=== PATIENT | male | born 1955 | race Caucasian/White ===

== ENCOUNTER → 2017-12-05 13:40 | Outpatient (CLI) | payer OTHER, SELFPAY ==
[2017-12-05 13:58] LABS: Add Manual Diff / Slide Review NO; Basophils Percent Auto 0.4 % (0-2); Hemoglobin 14.9 g/dL (13.5-17.5); Lymphocytes Percent Auto 23.3 % (25-40); Mean Corpuscular HGB Conc 33.9 % (30-36); Mean Corpuscular Volume 91.3 fL (80-100); Monocytes Percent Auto 9.8 % (3-14); Neutrophils Absolute Auto 3300 /uL (3000-5900); Neutrophils Percent Auto 61.5 % (50-75); Platelet Count 173 X10^3/uL (150-400); Red Blood Cell Count 4.82 X10^6/uL (4.5-5.9); Red Cell Distribution Width 13.3 % (11.6-14.8); White Blood Cell Count 5.4 X10^3/uL (4.5-11.0)
[2017-12-05 14:20] LABS: Alanine Aminotransferase 43 IU/L (21-72); Albumin 4.8 g/dL (3.5-5.0); Albumin Globulin Ratio 1.5 (1.0-2.8); Alkaline Phosphatase 58 U/L (38-126); Aspartate Aminotransferase 31 IU/L (17-59); BUN Creatinine Ratio 16.7 (6-22); Bilirubin Total 0.7 mg/dL (0.2-1.3); Blood Urea Nitrogen 15 mg/dL (9-20); Calcium 9.6 mg/dL (8.4-10.2); Carbon Dioxide 30 mmol/L (22-32); Chloride 100 mmol/L (98-107); Creatine Kinase 168 U/L (55-170); Estimated Glomerular Filt Rate > 60.0 mL/min (>60); Globulin 3.1 g/dL (1.7-4.1); Glucose 95 mg/dL (80-110); HEMOLYSIS < 15 (0-50); Potassium 4.7 mmol/L (3.4-5.1); Sodium 140 mmol/L (137-145); Total Protein 7.9 g/dL (6.3-8.2)
[2017-12-05 14:33] LABS: Troponin I < 0.012 ng/mL (0.01-0.034)
[2017-12-05 14:37] LABS: CKMB % Relative Index 0.9 % (1.5-5.0); Creatine Kinase MB 1.44 ng/mL (<2.37)
== END ==
PROVIDERS: Family Provider Family Medicine; PCP Family Medicine; Visit Provider Family Medicine
DX: R07.9 Chest pain, unspecified (principal)
CPT/HCPCS: 36415; 80053; 82550; 82553; 84484; 85025

== ENCOUNTER → 2018-12-12 07:14 | Outpatient (CLI) | payer OTHER, SELFPAY ==
[2018-12-12 09:34] LABS: Alanine Aminotransferase 30 IU/L (21-72); Albumin 4.7 g/dL (3.5-5.0); Albumin Globulin Ratio 1.6 (1.0-2.8); Alkaline Phosphatase 57 U/L (38-126); Aspartate Aminotransferase 34 IU/L (17-59); BUN Creatinine Ratio 12.2 (6-22); Bilirubin Total 0.6 mg/dL (0.2-1.3); Blood Urea Nitrogen 11 mg/dL (9-20); Calcium 9.7 mg/dL (8.4-10.2); Carbon Dioxide 28 mmol/L (22-32); Chloride 101 mmol/L (98-107); Estimated Glomerular Filt Rate > 60.0 mL/min (>60); Glucose 89 mg/dL (80-110); HEMOLYSIS < 15 (0-50); Potassium 4.3 mmol/L (3.4-5.1); Sodium 141 mmol/L (137-145); Total Protein 7.7 g/dL (6.3-8.2)
[2018-12-12 09:43] LABS: Vitamin D 25 Hydroxy (D3) 30.4 ng/mL (30.0-100.0)
[2018-12-12 10:00] LABS: Prostate Specific Antigen Scrn 1.39 ng/mL (0.1-4.0)
== END ==
PROVIDERS: Visit Provider Student in an Organized Health Care Education/Training Program
DX: Z12.5 Encounter for screening for malignant neoplasm of prostate (principal); E78.00 Pure hypercholesterolemia, unspecified; F10.20 Alcohol dependence, uncomplicated; I10 Essential (primary) hypertension; E55.9 Vitamin D deficiency, unspecified
CPT/HCPCS: 36415; 80053; 82306; G0103

== ENCOUNTER → 2020-08-26 08:02 | Outpatient (CLI) | payer OTHER, SELFPAY ==
[2020-08-26] MEDS: COVID-19 VACC, Ad26(JANSSEN)/PF 0.5 ML IM (08:07)
== END ==
PROVIDERS: Visit Provider Internal Medicine
DX: Z23 Encounter for immunization (principal)
CPT/HCPCS: 0031A; 91303

== ENCOUNTER → 2020-10-06 12:00 | Outpatient (CLI) | payer OTHER, SELFPAY ==
[2020-10-06 12:38] LABS: BUN Creatinine Ratio 19.8 (6-22); Blood Urea Nitrogen 17 mg/dL (9-20); Carbon Dioxide 30 mmol/L (22-32); Chloride 101 mmol/L (98-107); Estimated Glomerular Filt Rate > 60.0 mL/min (>60); Glucose 103 mg/dL (80-110); HEMOLYSIS < 15 (0-50); Potassium 4.3 mmol/L (3.4-5.1); Sodium 139 mmol/L (137-145)
[2020-10-06 13:09] LABS: Prostate Specific Antigen Scrn 1.23 ng/mL (0.1-4.0)
== END ==
PROVIDERS: PCP Student in an Organized Health Care Education/Training Program; Referring Provider Student in an Organized Health Care Education/Training Program; Visit Provider Student in an Organized Health Care Education/Training Program
DX: I10 Essential (primary) hypertension (principal); Z12.5 Encounter for screening for malignant neoplasm of prostate
CPT/HCPCS: 36415; 80048; G0103

== ENCOUNTER → 2021-12-28 15:33 | Outpatient (CLI) | payer MEDICARE, OTHER, SELFPAY ==
[2021-12-28 16:34] LABS: Alanine Aminotransferase 58 IU/L (<50); Albumin 4.6 g/dL (3.5-5.0); Albumin Globulin Ratio 1.5 (1.0-2.8); Alkaline Phosphatase 76 U/L (38-126); Aspartate Aminotransferase 68 IU/L (17-59); BUN Creatinine Ratio 11.8 (6-22); Bilirubin Total 0.6 mg/dL (0.2-1.3); Blood Urea Nitrogen 12 mg/dL (9-20); Calcium 9.4 mg/dL (8.4-10.2); Carbon Dioxide 28 mmol/L (22-32); Chloride 101 mmol/L (98-107); Cholesterol 179 mg/dL (140-199); Estimated Glomerular Filt Rate > 60 mL/min (>60); Glucose 110 mg/dL (80-110); HDL Cholesterol 87 mg/dL (40-60); HEMOLYSIS < 15 (0-50); LDL Cholesterol Calculated 78 mg/dL (<100); Potassium 4.1 mmol/L (3.4-5.1); Sodium 137 mmol/L (137-145); Total Protein 7.6 g/dL (6.3-8.2); Triglycerides 72 mg/dL (35-150)
[2021-12-28 17:02] LABS: TSH w/ Reflex to FT4 4.15 uIU/mL (0.47-4.68)
[2021-12-28 17:04] LABS: Prostate Specific Antigen Scrn 1.25 ng/mL (0.1-4.0)
[2021-12-28 17:40] LABS: Folate > 20.0 ng/mL (2.76-20.0); Vitamin B12 Reflex MMA if <400 846 pg/mL (239-931)
== END ==
PROVIDERS: PCP Student in an Organized Health Care Education/Training Program; Referring Provider Student in an Organized Health Care Education/Training Program; Visit Provider Student in an Organized Health Care Education/Training Program
DX: I10 Essential (primary) hypertension (principal); R97.20 Elevated prostate specific antigen [PSA]; E78.00 Pure hypercholesterolemia, unspecified; F10.20 Alcohol dependence, uncomplicated; Z12.5 Encounter for screening for malignant neoplasm of prostate
CPT/HCPCS: 36415; 80053; 80061; 82607; 82746; 84443; G0103

== ENCOUNTER 2022-01-12 11:32 | Emergency (ER) | payer MEDICARE, OTHER, SELFPAY ==
[2022-01-12] VITALS (11 sets, daily range): BP systolic 106–131; BP diastolic 67–82; PULSE 67–103; RESP 18–23; TEMP 37.2; O2SAT 99–100; BMI 27.8
--- NOTE | 2022-01-12 11:41 | DI.RAD.S_ITS ---
PROCEDURE: XR CHEST 2V INDICATIONS: shortness of breath TECHNIQUE: 2 views of the chest were acquired. COMPARISON: Located Within [facility], , CHEST 2 VIEW, 08/31/2010, 15:14. FINDINGS: Surgical changes and devices: None. Lungs and pleura: Lungs are clear. No pleural effusions or pneumothorax. Mediastinum: Mediastinal contours are normal. Heart size is normal. Bones and chest wall: No suspicious bony abnormalities. Soft tissues appear unremarkable. IMPRESSION: No acute cardiopulmonary disease. Dictated by: Ericka Burns M.D. on 01/12/2022 at 12:09 Approved by: Ericka Burns M.D. on 01/12/2022 at 12:09
[2022-01-12 12:02] LABS: Add Manual Diff / Slide Review NO; Basophils Absolute Auto 0 /uL (0-100); Basophils Percent Auto 0.3 % (0-2); Eosinophils Absolute Auto 200 /uL (0-450); Eosinophils Percent Auto 2.4 % (2-4); Hematocrit 45.1 % (41-53); Hemoglobin 15.5 g/dL (13.5-17.5); Lymphocytes Absolute Auto 2400 /uL (1100-4500); Lymphocytes Percent Auto 25.7 % (25-40); Mean Corpuscular HGB Conc 34.3 % (30-36); Mean Corpuscular Hemoglobin 32.2 PG (26-34); Mean Corpuscular Volume 93.8 fL (80-100); Monocytes Absolute Auto 900 /uL (0-900); Monocytes Percent Auto 9.8 % (3-14); Neutrophils Absolute Auto 5700 /uL (1500-7000); Neutrophils Percent Auto 61.8 % (50-75); Platelet Count 186 X10^3/uL (150-400); Red Blood Cell Count 4.81 X10^6/uL (4.5-5.9); Red Cell Distribution Width 13.4 % (11.6-14.8); White Blood Cell Count 9.3 X10^3/uL (4.5-11.0)
[2022-01-12 12:04] LABS: Lactate (Lactic Acid) 3.9 mmol/L (0.7-2.1)
[2022-01-12 12:05] LABS: Alanine Aminotransferase 47 IU/L (<50); Albumin 5.3 g/dL (3.5-5.0); Albumin Globulin Ratio 1.5 (1.0-2.8); Alkaline Phosphatase 92 U/L (38-126); Aspartate Aminotransferase 66 IU/L (17-59); BUN Creatinine Ratio 10.8 (6-22); Bilirubin Total 1.3 mg/dL (0.2-1.3); Blood Urea Nitrogen 16 mg/dL (9-20); Carbon Dioxide 22 mmol/L (22-32); Chloride 98 mmol/L (98-107); Estimated Glomerular Filt Rate 52 mL/min (>60); Globulin 3.5 g/dL (1.7-4.1); Glucose 135 mg/dL (80-110); HEMOLYSIS 33 (0-50); Potassium 4.3 mmol/L (3.4-5.1); Sodium 136 mmol/L (137-145); Total Protein 8.8 g/dL (6.3-8.2)
--- NOTE | 2022-01-12 12:11 | ED_ITS ---
HPI - SOB/Dyspnea General Chief Complaint: Shortness of Breath/Dyspnea Stated Complaint: SOB Time Seen by Provider: 01/12/22 11:58 Source: patient Mode of arrival: EMS Limitations: no limitations History of Present Illness HPI Narrative: This is a 66-year-old male with history of hypertension, dyslipidemia and alco hol dependency. Patient states that today he was out golfing he had increasing shortness of breath with exertion by the 2nd T on the golf course he was quite short of breath by the 4th T he was significantly out of gas and became diaphoretic very short of breath he did not have any syncope but felt a little lightheaded he denies any chest pain or pressure but his shoulders felt very tight. Patient denies nausea or vomiting no issues with bowel movements. He is noted his urine output has decreased over time denies any swelling of his extremities. Patient states he is had shortness of breath with exertion for the past year he does not feel like it has been progressive or changing he states he quit exercising 3 days a week about a year ago when he retired so he is unsure if this is more deconditioned. Patient states no new medication changes his primary care weeks ago. He quit drinking a 3rd of a 5th of hard alcohol daily about 3 days ago but is still drinking a 6 pack nightly patient denies any tobacco, no recreational drugs. He states he is felt a little shaky but has not had any other symptoms of withdrawal. He does note that he was out on the boat and outside for the last several days. He was hypotensive in the field with EMS and seem to respond to fluid he was also tachycardic. Related Data Previous Rx's Medication Instructions Recorded multivitamin 1 tab PO DAILY #30 tabs 12/11/18 atorvastatin 20 mg tablet 20 mg PO DAILY #90 tabs 09/14/21 lisinopril 10 1 tab PO DAILY #90 tabs 01/05/22 mg-hydrochlorothiazide 12.5 mg tablet Allergies Allergy/AdvReac Type Severity Reaction Status Date / Time No Known Drug Allergies Allergy Unverified 12/28/21 14:53 Review of Systems Review of Systems ROS Unobtainable: All systems reviewed & are unremarkable except as noted in HPI and below Patient History Medical History Chicken pox (~1959) Chronic back pain (~2008) Essential hypertension (03/22/16) Hearing loss Mild acid reflux Mumps Pure hypercholesterolemia (03/22/16) Vision disorder Surgical History Anesthesia History of eye surgery (~1959) Status post discectomy (~2008) Family History Father No problems noted. Mother No problems noted. Social History marital status: household members: spouse education level: college Smoking Status: Never smoker alcohol intake: current substance use type: does not use Smoking Status: Never smoker alcohol intake frequency: 3 or more drinks per day Substance Use Type: does not use Exam Narrative Exam Narrative: GENERAL: Alert and oriented x three, mild distress HEENT: Head normocephalic, atraumatic, EOMI, pupils reactive, face symmetric, moist mucous membranes NECK: Supple, full range of motion CARDIOVASCULAR: Regular rate and rhythm without murmurs, rubs or gallops. No JVD. No swelling bilateral lower extremities. RESPIRATORY: Breath sounds equal bilaterally, no wheezes rales or rhonchi. ABDOMEN: Soft, nontender. Normoactive bowel sounds all 4 quadrants. No guarding or rebound, rigidity, no mass : No CVA tenderness EXTREMITIES: Normal range of motion, no clubbing or edema. Neurovascularly intact NEUROLOGICAL: Cranial nerves II through XII grossly intact. Moving all ex tremities SKIN: Warm, dry, no petechiae, no rashes or lesions. Initial Vital Signs Initial Vital Signs: Vital Signs Pulse Oximetry 100 01/12/22 11:36 Course Orders Ordered: ED Orders 01/12/22 11:30 BNP [NT-proBNP (BNP-Adult 18+)] Stat Complete Blood Count AUTO DIFF Stat Comprehensive Metabolic Panel Stat ETOH [Ethanol (ETOH)] Stat Lactate (Lactic Acid) Stat Troponin & CK Cardiac Panel Stat 01/12/22 11:41 XR chest 2V Stat EKG-12 Lead Stat Measure peak expiratory flow ONCE RT Consult Eval and Treat Now 01/12/22 12:00 Creatinine Urine Random Stat Sodium Urine Random Stat Urine Microscopic Stat 01/12/22 13:05 COVID19 -Nasal RAPID/Pre-Proc Stat 01/12/22 13:50 Trop I [Troponin I] Stat Discontinued Medications Sodium Chloride (Normal Saline 0.9%) 1,000 mls @ 1,000 mls/hr IV BOLUS ONE Stop: 01/12/22 14:07 Last Infusion: 01/12/22 14:52 Dose: 0 mls/hr Documented By: Admin: 01/12/22 13:16 Dose: 1,000 mls/hr Documented By: [email or web address] Vital Signs Vital signs: Vital Signs - 8 hr 01/12/22 12:06 01/12/22 12:09 01/12/22 12:09 Pulse Rate 100 H Respiratory Rate 23 Blood Pressure 115/81 Pulse Oximetry 99 100 Oxygen Delivery Method 01/12/22 12:30 01/12/22 12:30 01/12/22 13:00 Pulse Rate Respiratory Rate Blood Pressure 106/70 114/68 Pulse Oximetry 99 Oxygen Delivery Method 01/12/22 13:00 01/12/22 13:19 01/12/22 13:19 Pulse Rate 97 H 70 Respiratory Rate 23 22 Blood Pressure 131/70 Pulse Oximetry 99 100 Oxygen Delivery Method 01/12/22 13:30 01/12/22 13:30 01/12/22 14:00 Pulse Rate 71 Respiratory Rate 22 Blood Pressure 116/67 112/71 Pulse Oximetry 100 Oxygen Delivery Method 01/12/22 14:00 01/12/22 14:30 01/12/22 14:30 Pulse Rate 91 H 67 Respiratory Rate 22 20 Blood Pressure 108/67 Pulse Oximetry 100 99 Oxygen Delivery Method 01/12/22 15:03 Pulse Rate 70 Respiratory Rate 19 Blood Pressure 114/82 Pulse Oximetry 99 Oxygen Delivery Method Room Air MDM - SOB/Dyspnea Lab Data Result diagrams: 01/12/22 11:30 01/12/22 11:30 Labs: Lab Results 01/12/22 01/12/22 01/12/22 Range/Units 11:30 11:30 11:30 WBC 9.3 (4.5-11.0) X10^3/uL RBC 4.81 (4.5-5.9) X10^6/uL Hgb 15.5 (13.5-17.5) g/dL Hct 45.1 (41-53) % MCV 93.8 (80-100) fL MCH 32.2 (26-34) PG MCHC 34.3 (30-36) % RDW 13.4 (11.6-14.8) % Plt Count 186 (150-400) X10^3/uL Neut % (Auto) 61.8 (50-75) % Lymph % (Auto) 25.7 (25-40) % [place] % (Auto) 9.8 (3-14) % Eos % (Auto) 2.4 (2-4) % Baso % (Auto) 0.3 (0-2) % Neut # (Auto) 5700 (6685-2265) /uL Lymph # (Auto) 2400 (2101-1413) /uL [place] # (Auto) 900 (0-900) /uL Eos # (Auto) 200 (0-450) /uL Baso # (Auto) 0 (0-100) /uL Sodium 136 L (137-145) mmol/L Potassium 4.3 (3.4-5.1) mmol/L Chloride 98 (98-107) mmol/L Carbon Dioxide 22 (22-32) mmol/L BUN 16 (9-20) mg/dL Creatinine 1.48 H (0.66-1.25) mg/dL Estimated GFR 52 L (>60) mL/min BUN/Creatinine Ratio 10.8 (6-22) Glucose 135 H (80-110) mg/dL Lactate 3.9 H (0.7-2.1) mmol/L Calcium 10.0 (8.4-10.2) mg/dL Total Bilirubin 1.3 (0.2-1.3) mg/dL AST 66 H (17-59) IU/L ALT 47 (<50) IU/L Alkaline Phosphatase 92 (38-126) U/L Total Creatine Kinase (55-170) U/L CK-MB (CK-2) (<2.37) ng/mL CK-MB (CK-2) Rel Index (1.5-5.0) % Troponin I (0.01-0.034) ng/mL NT-Pro-B Natriuret Pep (<125) pg/mL Total Protein 8.8 H (6.3-8.2) g/dL Albumin 5.3 H (3.5-5.0) g/dL Globulin 3.5 (1.7-4.1) g/dL Albumin/Globulin Ratio 1.5 (1.0-2.8) Urine RBC (0-5/HPF) Urine WBC (0-5/HPF) Ur Squamous Epith Cells (0-5/HPF) Urine Bacteria (None) Hyaline Casts (None) Ur Culture Indicated? Ur Random Sodium (30-90) mmol/L Urine Creatinine mg/dL Ethyl Alcohol ( - 10) mg/dL SARS-CoV-2 (PCR) (Negative) 01/12/22 01/12/22 01/12/22 Range/Units 11:30 11:30 12:00 WBC (4.5-11.0) X10^3/uL RBC (4.5-5.9) X10^6/uL Hgb (13.5-17.5) g/dL Hct (41-53) % MCV (80-100) fL MCH (26-34) PG MCHC (30-36) % RDW (11.6-14.8) % Plt Count (150-400) X10^3/uL Neut % (Auto) (50-75) % Lymph % (Auto) (25-40) % [place] % (Auto) (3-14) % Eos % (Auto) (2-4) % Baso % (Auto) (0-2) % Neut # (Auto) (4821-8455) /uL Lymph # (Auto) (9586-6704) /uL [place] # (Auto) (0-900) /uL Eos # (Auto) (0-450) /uL Baso # (Auto) (0-100) /uL Sodium (137-145) mmol/L Potassium (3.4-5.1) mmol/L Chloride (98-107) mmol/L Carbon Dioxide (22-32) mmol/L BUN (9-20) mg/dL Creatinine (0.66-1.25) mg/dL Estimated GFR (>60) mL/min BUN/Creatinine Ratio (6-22) Glucose (80-110) mg/dL Lactate (0.7-2.1) mmol/L Calcium (8.4-10.2) mg/dL Total Bilirubin (0.2-1.3) mg/dL AST (17-59) IU/L ALT (<50) IU/L Alkaline Phosphatase (38-126) U/L Total Creatine Kinase 229 H (55-170) U/L CK-MB (CK-2) 2.45 H (<2.37) ng/mL CK-MB (CK-2) Rel Index 1.1 L (1.5-5.0) % Troponin I < 0.012 (0.01-0.034) ng/mL NT-Pro-B Natriuret Pep 420 H (<125) pg/mL Total Protein (6.3-8.2) g/dL Albumin (3.5-5.0) g/dL Globulin (1.7-4.1) g/dL Albumin/Globulin Ratio (1.0-2.8) Urine RBC 0-1/hpf (0-5/HPF) Urine WBC 0-1/hpf (0-5/HPF) Ur Squamous Epith Cells 0-1 /hpf (0-5/HPF) Urine Bacteria None seen (None) Hyaline Casts 1-5/lpf (None) Ur Culture Indicated? Cult not indicated Ur Random Sodium (30-90) mmol/L Urine Creatinine mg/dL Ethyl Alcohol < 10 ( - 10) mg/dL SARS-CoV-2 (PCR) (Negative) 01/12/22 01/12/22 01/12/22 Range/Units 12:00 13:05 13:50 WBC (4.5-11.0) X10^3/uL RBC (4.5-5.9) X10^6/uL Hgb (13.5-17.5) g/dL Hct (41-53) % MCV (80-100) fL MCH (26-34) PG MCHC (30-36) % RDW (11.6-14.8) % Plt Count (150-400) X10^3/uL Neut % (Auto) (50-75) % Lymph % (Auto) (25-40) % [place] % (Auto) (3-14) % Eos % (Auto) (2-4) % Baso % (Auto) (0-2) % Neut # (Auto) (6132-9707) /uL Lymph # (Auto) (5277-4340) /uL [place] # (Auto) (0-900) /uL Eos # (Auto) (0-450) /uL Baso # (Auto) (0-100) /uL Sodium (137-145) mmol/L Potassium (3.4-5.1) mmol/L Chloride (98-107) mmol/L Carbon Dioxide (22-32) mmol/L BUN (9-20) mg/dL Creatinine (0.66-1.25) mg/dL Estimated GFR (>60) mL/min BUN/Creatinine Ratio (6-22) Glucose (80-110) mg/dL Lactate (0.7-2.1) mmol/L Calcium (8.4-10.2) mg/dL Total Bilirubin (0.2-1.3) mg/dL AST (17-59) IU/L ALT (<50) IU/L Alkaline Phosphatase (38-126) U/L Total Creatine Kinase (55-170) U/L CK-MB (CK-2) (<2.37) ng/mL CK-MB (CK-2) Rel Index (1.5-5.0) % Troponin I < 0.012 (0.01-0.034) ng/mL NT-Pro-B Natriuret Pep (<125) pg/mL Total Protein (6.3-8.2) g/dL Albumin (3.5-5.0) g/dL Globulin (1.7-4.1) g/dL Albumin/Globulin Ratio (1.0-2.8) Urine RBC (0-5/HPF) Urine WBC (0-5/HPF) Ur Squamous Epith Cells (0-5/HPF) Urine Bacteria (None) Hyaline Casts (None) Ur Culture Indicated? Ur Random Sodium 69 (30-90) mmol/L Urine Creatinine 60.4 mg/dL Ethyl Alcohol ( - 10) mg/dL SARS-CoV-2 (PCR) Negative (Negative) 01/12/22 Range/Units 13:50 WBC (4.5-11.0) X10^3/uL RBC (4.5-5.9) X10^6/uL Hgb (13.5-17.5) g/dL Hct (41-53) % MCV (80-100) fL MCH (26-34) PG MCHC (30-36) % RDW (11.6-14.8) % Plt Count (150-400) X10^3/uL Neut % (Auto) (50-75) % Lymph % (Auto) (25-40) % [place] % (Auto) (3-14) % Eos % (Auto) (2-4) % Baso % (Auto) (0-2) % Neut # (Auto) (3437-4667) /uL Lymph # (Auto) (3656-3530) /uL [place] # (Auto) (0-900) /uL Eos # (Auto) (0-450) /uL Baso # (Auto) (0-100) /uL Sodium (137-145) mmol/L Potassium (3.4-5.1) mmol/L Chloride (98-107) mmol/L Carbon Dioxide (22-32) mmol/L BUN (9-20) mg/dL Creatinine (0.66-1.25) mg/dL Estimated GFR (>60) mL/min BUN/Creatinine Ratio (6-22) Glucose (80-110) mg/dL Lactate 1.0 (0.7-2.1) mmol/L Calcium (8.4-10.2) mg/dL Total Bilirubin (0.2-1.3) mg/dL AST (17-59) IU/L ALT (<50) IU/L Alkaline Phosphatase (38-126) U/L Total Creatine Kinase (55-170) U/L CK-MB (CK-2) (<2.37) ng/mL CK-MB (CK-2) Rel Index (1.5-5.0) % Troponin I (0.01-0.034) ng/mL NT-Pro-B Natriuret Pep (<125) pg/mL Total Protein (6.3-8.2) g/dL Albumin (3.5-5.0) g/dL Globulin (1.7-4.1) g/dL Albumin/Globulin Ratio (1.0-2.8) Urine RBC (0-5/HPF) Urine WBC (0-5/HPF) Ur Squamous Epith Cells (0-5/HPF) Urine Bacteria (None) Hyaline Casts (None) Ur Culture Indicated? Ur Random Sodium (30-90) mmol/L Urine Creatinine mg/dL Ethyl Alcohol ( - 10) mg/dL SARS-CoV-2 (PCR) (Negative) Urine Dip Bedside Urine Glucose Negative Bedside Urine Bilirubin - Negative Bedside Urine Ketone - Negative Urine Specific [place] 1.010 Bedside Urine Occult Blood - Negative Bedside Urine pH 6 Bedside Urine Protein + 30 Bedside Urine Urobilinogen - Negative Bedside Urine Nitrite - Negative Bedside Urine Leukocytes - Negative Esterase Imaging Data Chest x-ray: Radiologist's Impression: [address] [address] XRay Report Signed Patient: Colt Wrad MR#: [id number] : 1955 Acct:[id number] Age/Sex: 66 / M Date of Service: 01/12/22 Loc: ED Accession Number: [id number] ?? Procedure: XR chest 2V Ordering Provider: Adriana Blount D.O. PROCEDURE:? XR CHEST 2V ? INDICATIONS:? shortness of breath ? TECHNIQUE:? 2 views of the chest were acquired.? ? COMPARISON:? [facility], , CHEST 2 VIEW, 08/31/2010, 15:14. ? FINDINGS:? ? Surgical changes and devices:? None.? ? Lungs and pleura:? Lungs are clear.? No pleural effusions or pneumothorax.? ? Mediastinum:? Mediastinal contours are normal.? Heart size is normal.? ? Bones and chest wall:? No suspicious bony abnormalities.? Soft tissues appear unremarkable.? ? IMPRESSION:? No acute cardiopulmonary disease. ? ? ? Dictated by: Ericka Burns M.D. on 01/12/2022 at 12:09 ? ? Approved by: Ericka Burns M.D. on 01/12/2022 at 12:09?? ECG Data Attestation: I personally reviewed and interpreted this ECG as follows: Interpretation: Junctional rhythm rate of 105 QRS of 90 QTC of 454. No acute ST changes noted. Patient has prior from June 17, 2000 available and imaging which is not showing any acute changes. MDM Narrative Medical decision making narrative: This is a 66-year-old male with hypertension, dyslipidemia and dyspnea exertion for the past year had an episode today while out on the golf course which he has not done frequently. Patient has had some exertional dyspnea this could be an anginal equivalent. His troponin is negative x2 no acute EKG changes but also f ound to have a bump in his creatinine from even 2 weeks ago. FENA reflects more of an intrinsic cause. Patient's BUN is not elevated does not ketones in his urine. No obvious signs of infection. He is on lisinopril/HCTZ and was hypotensive on arrival so asked to hold this at this time follow-up with his physician in the next week to have his renal function rechecked and to continue to hydrate. Patient and I discussed if he has any additional episodes of dyspnea he should return for emergent evaluation but should discuss with primary care about possibly having stress testing. He does note he was working out regularly before and had stopped but based on his symptoms today I suspect this is more than just deconditioning. Discharge Plan Departure Patient Disposition: Home Clinical Impression: Dyspnea Instructions: DI for Shortness of Breath Activity Restrictions/Additional Instructions: Follow-up with your physician for recheck, they need to recheck your renal function I would also consider having stress testing for your exertional dyspnea. Your labs are overall reassuring but your renal function is decreased today from your prior labs 2 weeks ago. Please follow-up with your physician to get your renal function rechecked in the next 2-3 days and make sure to increase your hydration and drink plenty of fluids. Please hold your lisinopril/HCTZ until you have your renal function rechecked they may restart this medication if your kidney function has normalized. Please return for fevers, increasing shortness of breath, chest pain or pressure, passing out, nausea or vomiting, diaphoresis or sweatiness, new swelling in her extremities or other new or concerning symptoms. Prescriptions: No Action atorvastatin 20 mg tablet 20 mg PO DAILY Qty: 90 0RF Rx Instructions: Patient needs to be seen before next renewal 09/14/21. lisinopril-hydrochlorothiazide 10-12.5 mg tablet 1 tab PO DAILY Qty: 90 1RF multivitamin tablet 1 tab PO DAILY Qty: 30 0RF Referrals: Sabino Sutherland MD [Primary Care Provider] - Visit Report Forms: Patient Portal/API
[2022-01-12 12:27] LABS: Creatine Kinase 229 U/L (55-170)
[2022-01-12 12:28] LABS: Ethanol (ETOH) < 10 mg/dL
[2022-01-12 12:41] LABS: NT-proBNP (BNP-Adult 18+) 420 pg/mL (<125); Troponin I < 0.012 ng/mL (0.01-0.034)
[2022-01-12 12:45] LABS: CKMB % Relative Index 1.1 % (1.5-5.0); Creatine Kinase MB 2.45 ng/mL (<2.37)
[2022-01-12] MEDS: SODIUM CHLORIDE 0.9% 1,000 ML 1000 ML IV (13:16)
[2022-01-12 13:36] LABS: Bacteria Urine None Seen; Culture Indicated Urine Cult Not Indicated; Hyaline Casts Urine 1-5/LPF; RBC Urine 0-1/HPF (0-5/HPF); Squamous Epithelial Cell Urine 0-1 /HPF (0-5/HPF); WBC Urine 0-1/HPF (0-5/HPF)
[2022-01-12 13:44] LABS: Creatinine Urine Random 60.4 mg/dL; Sodium Urine Random 69 mmol/L (30-90)
[2022-01-12 13:54] LABS: Reflexed Lactate in 2 Hours Y
[2022-01-12 14:24] LABS: Troponin I < 0.012 ng/mL (0.01-0.034)
[2022-01-12 14:54] LABS: COVID19 -Nasal RAPID Negative (Negative)
== END 2022-01-12 15:04 | disposition home or self-care (01) ==
PROVIDERS: Emergency Provider Emergency Medicine; PCP Student in an Organized Health Care Education/Training Program
DX: R06.00 Dyspnea, unspecified (principal); Z20.822 Contact with and (suspected) exposure to COVID-19
CPT/HCPCS: 36415; 71046; 80053; 80320; 81003; 81015; 82550; 82553; 82570; 83605; 83880; 84300; 84484; 85025; 87635; 93005; 99284; C9803

== ENCOUNTER → 2022-01-15 07:29 | Outpatient (CLI) | payer MEDICARE, OTHER, SELFPAY ==
[2022-01-15 08:02] LABS: BUN Creatinine Ratio 15.9 (6-22); Blood Urea Nitrogen 13 mg/dL (9-20); Calcium 9.1 mg/dL (8.4-10.2); Carbon Dioxide 27 mmol/L (22-32); Chloride 103 mmol/L (98-107); Estimated Glomerular Filt Rate > 60 mL/min (>60); Glucose 103 mg/dL (80-110); HEMOLYSIS < 15 (0-50); Potassium 4.6 mmol/L (3.4-5.1); Sodium 139 mmol/L (137-145)
== END ==
PROVIDERS: PCP Student in an Organized Health Care Education/Training Program; Referring Provider Emergency Medicine; Visit Provider Emergency Medicine
DX: N17.9 Acute kidney failure, unspecified (principal)
CPT/HCPCS: 36415; 80048

== ENCOUNTER → 2023-03-27 11:56 | Outpatient (CLI) | payer MEDICARE, OTHER, SELFPAY ==
[2023-03-27 12:28] LABS: Hematocrit 42.9 % (41-53); Hemoglobin 14.6 g/dL (13.5-17.5)
[2023-03-27 12:52] LABS: Hemoglobin A1C% w Est Avg Glu 5.2 % (4.0-6.0)
[2023-03-27 13:15] LABS: Iron 146 ug/dL (49-181)
[2023-03-27 13:17] LABS: Alanine Aminotransferase 40 IU/L (<50); Albumin 4.3 g/dL (3.5-5.0); Albumin Globulin Ratio 1.5 (1.0-2.8); Alkaline Phosphatase 76 U/L (38-126); Aspartate Aminotransferase 52 IU/L (17-59); BUN Creatinine Ratio 13.4 (6-22); Bilirubin Total 0.8 mg/dL (0.2-1.3); Blood Urea Nitrogen 11 mg/dL (9-20); Calcium 9.3 mg/dL (8.4-10.2); Carbon Dioxide 24 mmol/L (22-32); Chloride 101 mmol/L (98-107); Cholesterol 185 mg/dL (140-199); Estimated Glomerular Filt Rate > 60 mL/min (>60); Globulin 2.8 g/dL (1.7-4.1); Glucose 104 mg/dL (80-110); HDL Cholesterol 103 mg/dL (40-60); HEMOLYSIS < 15 (0-50); LDL Cholesterol Calculated 63 mg/dL (<100); Potassium 4.2 mmol/L (3.4-5.1); Sodium 137 mmol/L (137-145); Total Protein 7.1 g/dL (6.3-8.2); Triglycerides 97 mg/dL (35-150)
[2023-03-27 17:37] LABS: Hep C Virus Ab w/Reflex Quant NEGATIVE s/c (NEGATIVE)
[2023-04-11 12:08] LABS: Vitamin B1 159.2 nmol/L (66.5-200.0)
== END ==
PROVIDERS: PCP Family Medicine; Referring Provider Family Medicine; Visit Provider Family Medicine
DX: Z86.010 Personal history of colon polyps (principal); F10.20 Alcohol dependence, uncomplicated; I10 Essential (primary) hypertension; E78.00 Pure hypercholesterolemia, unspecified; Z00.00 Encounter for general adult medical examination without abnormal findings
CPT/HCPCS: 36415; 80053; 80061; 83036; 83540; 84425; 85014; 85018; 86803

== ENCOUNTER → 2023-03-28 07:13 | Outpatient (CLI) | payer MEDICARE, OTHER, SELFPAY ==
[2023-03-28 09:37] LABS: Creatinine Urine Random 197.3 mg/dL
[2023-03-28 09:41] LABS: Microalbumin Urine Random 0.8 mg/dL (0-1.6)
== END ==
PROVIDERS: PCP Family Medicine; Referring Provider Family Medicine; Visit Provider Family Medicine
DX: Z86.010 Personal history of colon polyps (principal); F10.20 Alcohol dependence, uncomplicated; I10 Essential (primary) hypertension; E78.00 Pure hypercholesterolemia, unspecified; Z00.00 Encounter for general adult medical examination without abnormal findings
CPT/HCPCS: 82043; 82570

== ENCOUNTER → 2023-04-03 10:57 | Outpatient (CLI) | payer MEDICARE, OTHER, SELFPAY ==
[2023-04-03 13:24] LABS: Vitamin B12 Reflex MMA if <400 240 pg/mL (239-931)
[2023-04-06 13:32] LABS: ANA Screen, IFA Negative (.)
[2023-04-08 10:28] LABS: Alpha-1 Globulin, Ur 8.9 % (.); Beta Globulin, Ur 27.7 % (.); Gamma Globulin, Ur 15.8 % (.); M-Spike % Not Observed % (Not Observed)
[2023-04-08 14:24] LABS: Albumin 3.8 g/dL (2.9-4.4); Alpha-1-Globulin 0.2 g/dL (0.0-0.4); Alpha-2-Globulin 0.6 g/dL (0.4-1.0); Gamma Globulin 1.1 g/dL (0.4-1.8); Globulin Total 3.1 g/dL (2.2-3.9); Protein, Total 6.9 g/dL (6.0-8.5)
[2023-04-12 23:39] LABS: Methylmalonic Acid,Serum 101 nmol/L (0-378)
== END ==
PROVIDERS: PCP Family Medicine; Referring Provider Family Medicine; Visit Provider Family Medicine
DX: F10.20 Alcohol dependence, uncomplicated (principal); R20.0 Anesthesia of skin; R20.2 Paresthesia of skin
CPT/HCPCS: 36415; 82607; 83921; 84155; 84156; 84165; 84166; 86038

== ENCOUNTER 2023-08-06 12:48 | Day surgery (SDC) | payer MEDICARE, OTHER, SELFPAY ==
[2023-08-06 13:04] VITALS: BP 123/84; PULSE 96; RESP 18; TEMP 36.1; O2SAT 99
--- NOTE | 2023-08-06 13:40 | SUR.PREOP ---
Patients procedure was canceled by anesthesia due to abnormal EKG. Will follow-up with PCP or cardiology.
== END 2023-08-06 12:50 | disposition home or self-care (01) ==
PROVIDERS: PCP Family Medicine; Referring Provider Surgery; Visit Provider Surgery
DX: Z12.11 Encounter for screening for malignant neoplasm of colon (principal); Z53.9 Procedure and treatment not carried out, unspecified reason; R00.0 Tachycardia, unspecified
CPT/HCPCS: 45378; 93005

== ENCOUNTER → 2023-08-08 10:57 | Outpatient (CLI) | payer MEDICARE, OTHER, SELFPAY ==
--- NOTE | 2023-08-08 11:00 | DI.RAD.S_ITS ---
PROCEDURE: XR CHEST 2V INDICATIONS: Treat and Eval TECHNIQUE: 2 views of the chest were acquired. COMPARISON: [facility], [place], XR CHEST 2V, 01/12/2022, 11:50. [facility], [place], CHEST 2 VIEW, 08/31/2010, 15:14. FINDINGS: Surgical changes and devices: None. Lungs and pleura: Lungs are clear. No pleural effusions or pneumothorax. Mediastinum: Mediastinal contours are normal. Heart size is normal. Bones and chest wall: No suspicious bony abnormalities. Soft tissues appear unremarkable. IMPRESSION: No acute cardiopulmonary abnormality is seen. Dictated by: Ovi aT M.D. on 08/08/2023 at 14:48 Approved by: Ovi Ta M.D. on 08/08/2023 at 14:51
== END ==
PROVIDERS: PCP Family Medicine; Referring Provider Family Medicine; Visit Provider Family Medicine
DX: R06.2 Wheezing (principal)
CPT/HCPCS: 71046

== ENCOUNTER → 2023-08-15 09:40 | Outpatient (CLI) | payer MEDICARE, OTHER, SELFPAY | PROVIDERS: PCP Family Medicine; Referring Provider Family Medicine; Visit Provider Family Medicine | DX: R00.2 Palpitations (principal); I48.91 Unspecified atrial fibrillation; I48.92 Unspecified atrial flutter | CPT/HCPCS: 93246 ==

== ENCOUNTER → 2023-08-23 06:48 | Outpatient (CLI) | payer MEDICARE, OTHER, SELFPAY ==
--- NOTE | 2023-08-23 06:49 | DI.ECHO.S_ITS ---
[place] [facility]---------+ [facility] +---------+ : : [address] : : : : [id number] : : : : Phone: [phone] Echocardiogram Report + + :Name: PIO HERRMANN Study Date: 08/23/2023 Height: 72 in : :[facility] ReadingLocation: Weight: 212 lb : : Gender: Male BSA: 2.2 m2 : :: 1955 Age: 68 yrs BP: 125/89 mmHg: :Reason For Study: TREAT AND EVAL, ABNORMAL EKG : :Ordering Physician: MARCE, : :FELICIA Tirado Performed By: Iris Patel : :Referring: FELICIA ZHENG : + + Interpretation Summary The ejection fraction is estimated to be 60-65%. Diastolic parameters suggest probable normal left ventricular diastolic function and normal filling pressures. The right ventricular systolic function is normal. No significant valvular abnormality. The ascending aorta is at the upper limits of normal in size. Procedure: A two-dimensional transthoracic echocardiogram with color flow and Doppler was performed. The study quality was technically adequate. There is no prior echocardiogram noted for this patient. The patient was in sinus rhythm with heart rates between 62-70 bpm during the exam. Left Ventricle: The left ventricle is normal in size and wall thickness. The ejection fraction is estimated to be 60-65%. Left ventricular wall motion is normal. Diastolic parameters suggest probable normal left ventricular diastolic function and normal filling pressures. Right Ventricle: The right ventricle is mildly dilated. The right ventricular systolic function is normal. Atria: The left atrial size is normal. Right atrial size is normal. There is no Doppler evidence for an interatrial shunt. Mitral Valve: The mitral valve is normal in structure and function. There is trace mitral regurgitation. Aortic Valve: The aortic valve is trileaflet. The aortic valve opens well. There is no aortic valve stenosis. There is trace aortic regurgitation. Tricuspid Valve: The tricuspid valve is normal in structure and function. There is trace tricuspid regurgitation. Pulmonic Valve: The pulmonic valve is not well seen, but is grossly normal. There is mild pulmonic regurgitation. Great Vessels: The aortic root is normal size. The ascending aorta is at the upper limits of normal in size. The IVC is of normal diameter and collapses greater than 50% with a sniff. This suggests a low right atrial pressure of 3 mm Hg. Pericardium/ Pleura There is no pericardial effusion. There is no pleural effusion. MMode/2D Measurements & Calculations LVIDd: 5.0 cm LVOT diam: 2.2 cm LVIDs: 3.1 cm Ao root diam: 3.7 cm FS: 37.4 % asc Aorta Diam: 3.9 cm EPSS: 0.37 cm Ao Arch Diam (Prox Trans): 3.3 cm IVSd: 0.86 cm LVPWd: 0.72 cm LV weaver. diameter/BSA (cm/m^2): 2.3 LV sys. diameter/BSA (cm/m^2): 1.4 LA A2 area: 24.3 cm2 RA long axis: 4.9 cm LA A4 area: 16.4 cm2 RA area: 16.9 cm2 LA length (vol): 5.0 cm RA vol: 50.0 ml LA vol: 67.5 ml RA : 22.9 ml/m2 LA vol index: 30.9 ml/m2 IVC diam: 1.8 cm RVD1 (basal): 4.2 cm RVD2 (mid): 3.4 cm TAPSE: 2.2 cm Doppler Measurements & Calculations Ao V2 max: 114.5 cm/sec LVOT Max Wil: 94.8 cm/sec Ao V2 mean: 82.5 cm/sec LV V1 max P.6 mmHg Ao max P.2 mmHg LV V1 VTI: 19.3 cm Ao mean P.0 mmHg YURIDIA(I,D): 2.7 cm2 Ao V2 VTI: 26.4 cm YURIDIA(V,D): 3.1 cm2 sev ratio: 0.73 YURIDIA indexed to BSA (cm^2/m^2): 1.3 MV E max wil: 55.8 cm/sec TR max wil: 201.1 cm/sec MV A max wil: 56.6 cm/sec TR max P.2 mmHg MV E/A: 0.99 PA V2 max: 89.0 cm/sec Med Peak E' Wil: 7.4 cm/sec PA V2 mean: 65.0 cm/sec E/E' med: 7.5 PA mean P.8 mmHg Lat Peak E' Wil: 8.6 cm/sec PA pr(Accel): 34.5 mmHg E/E' lat: 6.5 E/e' average: 7.0 MV dec time: 0.30 sec [facility]): 72.3 ml Reading Physician:DIANA
== END ==
LOC: ECHO 06:48
PROVIDERS: PCP Family Medicine; Referring Provider Family Medicine; Visit Provider Family Medicine
DX: I37.1 Nonrheumatic pulmonary valve insufficiency (principal); R94.31 Abnormal electrocardiogram [ECG] [EKG]
CPT/HCPCS: 93306

== ENCOUNTER 2023-11-03 19:36 | Emergency (ER) | payer MEDICARE, OTHER, SELFPAY ==
--- NOTE | 2023-11-03 19:52 | DI.RAD.S_ITS ---
PROCEDURE: XR CHEST 1V INDICATIONS: chest pain TECHNIQUE: One view of the chest was acquired. COMPARISON: [facility], CR, XR CHEST 2V, 08/08/2023, 11:11. [facility], CR, XR CHEST 2V, 01/12/2022, 11:50. FINDINGS: Surgical changes and devices: None. Lungs and pleura: Lungs are clear. No pleural effusions or pneumothorax. Mediastinum: Mediastinal contours appear normal. Heart size is normal. Bones and chest wall: No suspicious bony lesions. Overlying soft tissues appear unremarkable. IMPRESSION: No acute cardiopulmonary abnormality is seen. Dictated by: Rio Hewitt M.D. on 11/03/2023 at 21:07 Approved by: Rio Hewitt M.D. on 11/03/2023 at 21:08
[2023-11-03 19:53] VITALS: BP 145/91; PULSE 98; RESP 16; TEMP 36.8; O2SAT 99; BMI 28.5
[2023-11-03] MEDS: ASPIRIN 81 MG CHEW TAB 324 MG PO (20:07)
[2023-11-03 20:12] LABS: INR 0.9 (0.9-1.3); Prothrombin Time 10.2 SECONDS (9.4-12.5)
[2023-11-03 20:15] LABS: PTT Partial Thromboplastin Tim 30 SECONDS (25.1-36.5)
[2023-11-03 20:16] LABS: Add Manual Diff / Slide Review NO; Basophils Absolute Auto 0 /uL (0-100); Basophils Percent Auto 0.4 % (0-2); Eosinophils Absolute Auto 200 /uL (0-450); Eosinophils Percent Auto 4.3 % (2-4); Lymphocytes Absolute Auto 1900 /uL (1100-4500); Lymphocytes Percent Auto 34.9 % (25-40); Mean Corpuscular HGB Conc 33.4 % (30-36); Mean Corpuscular Hemoglobin 32.2 PG (26-34); Mean Corpuscular Volume 96.3 fL (80-100); Monocytes Absolute Auto 700 /uL (0-900); Monocytes Percent Auto 13.4 % (3-14); Neutrophils Absolute Auto 2600 /uL (1500-7000); Platelet Count 125 X10^3/uL (150-400); Red Blood Cell Count 4.37 X10^6/uL (4.5-5.9); Red Cell Distribution Width 13.3 % (11.6-14.8); White Blood Cell Count 5.5 X10^3/uL (4.5-11.0)
[2023-11-03 20:18] LABS: Alanine Aminotransferase 85 IU/L (<50); Albumin 4.7 g/dL (3.5-5.0); Albumin Globulin Ratio 1.6 (1.0-2.8); Alkaline Phosphatase 74 U/L (38-126); Aspartate Aminotransferase 134 IU/L (17-59); BUN Creatinine Ratio 14.5 (6-22); Bilirubin Total 0.7 mg/dL (0.2-1.3); Blood Urea Nitrogen 11 mg/dL (9-20); Calcium 9.1 mg/dL (8.4-10.2); Carbon Dioxide 22 mmol/L (22-32); Chloride 106 mmol/L (98-107); Creatine Kinase 363 U/L (55-170); Estimated Glomerular Filt Rate > 60 mL/min (>60); Globulin 2.9 g/dL (1.7-4.1); Glucose 104 mg/dL (80-110); HEMOLYSIS 38 (0-50); Lipase 169 U/L (23-300); Magnesium 2.2 mg/dL (1.6-2.3); Potassium 4.1 mmol/L (3.4-5.1); Sodium 138 mmol/L (137-145); Total Protein 7.6 g/dL (6.3-8.2)
[2023-11-03 20:29] LABS: Troponin I < 0.012 ng/mL (0.01-0.034)
[2023-11-03 20:32] VITALS: BP 138/91; PULSE 101; RESP 18; O2SAT 100
[2023-11-03 21:38] LABS: Ethanol (ETOH) 83 mg/dL
--- NOTE | 2023-11-03 21:58 | ED.CHESTPAIN ---
HPI - Chest Pain General Chief Complaint: Chest Pain Stated Complaint: Chest Pain Time Seen by Provider: 11/03/23 21:58 Source: patient Mode of arrival: Ambulatory Limitations: no limitations History of Present Illness HPI narrative: 68-year-old male with history of regular alcohol use, last drink 4:00 p.m. earlier today, intermittent left-sided chest discomfort. He was lifting something and twisting motion recently, for the last 2 days has had pain left lateral chest, worse with deep inspiration and chest wall movements. No history of blood clots known, no leg pain or swelling symptoms. No history of known coronary artery disease, no cardiac testing recently. No fevers or chills, denies shortness of breath. Related Data Previous Rx's Medication Instructions Recorded multivitamin 1 tab PO DAILY #30 tabs 12/11/18 mupirocin 2 % topical ointment 1 applic topical BID #22 grams 03/27/23 sodium,potassium,mag sulfates 17.5 See Rx Instructions PO .COMPLEX 04/15/23 gram-3.13 gram-1.6 gram oral soln #354 mL (Suprep Bowel Prep Kit) atorvastatin 20 mg tablet 20 mg PO DAILY #90 tabs 09/30/23 lisinopril 20 mg tablet 20 mg PO DAILY #90 tabs 10/24/23 famotidine 20 mg tablet (Pepcid) 20 mg PO BID 30 days #60 tabs 11/04/23 Allergies Allergy/AdvReac Type Severity Reaction Status Date / Time No Known Drug Allergies Allergy Unverified 08/07/23 09:06 Review of Systems Review of Systems ROS Unobtainable: All systems reviewed & are unremarkable except as noted in HPI and below Patient History Medical History Chicken pox (~1959) Chronic back pain (~2008) Essential hypertension (03/22/16) Hearing loss Mild acid reflux Mumps Pure hypercholesterolemia (03/22/16) Vision disorder Surgical History Anesthesia History of eye surgery (~1959) Status post discectomy (~2008) Family History Father No problems noted. Mother No problems noted. Social History marital status: household members: spouse education level: college Smoking Status: Never smoker Smokeless tobacco user: chewing tobacco alcohol intake: current substance use type: does not use Smoking Status: Never smoker alcohol intake frequency: 3 or more drinks per day Substance Use Type: does not use Exam Narrative Exam Narrative: GENERAL: Well-developed patient, in mild distress. HEAD: Atraumatic. Normocephalic. EYES: Pupils equal round and reactive. Extraocular motions intact. No scleral icterus. No injection or drainage. ENT: Nose without bleeding, purulent drainage. Throat without erythema, tonsillar hypertrophy or exudate. Airway patent. NECK: Trachea midline. Non tender CARDIOVASCULAR: Regular rate and rhythm without murmurs, gallops, or rubs. RESPIRATORY: Clear to auscultation. Breath sounds equal bilaterally. No wheezes, rales, or rhonchi. Tenderness to left inferolateral chest wall, no redness, no abrasions, no paradoxical motions, no crepitance, no subcutaneous air or emphysema. No respiratory distress, no intercostal or suprasternal retractions. GASTROINTESTINAL: Abdomen soft, non-tender, nondistended. EXTREMITIES: No edema or joint tenderness. No leg pain or swelling symptoms. BACK: Nontender without deformity or crepitance. No flank tenderness. NEURO: AOx3. SKIN: No rash or erythema of visible areas Initial Vital Signs Initial Vital Signs: Vital Signs Temperature 98.2 F 11/03/23 19:53 Pulse Rate 98 H 11/03/23 19:53 Respiratory Rate 16 11/03/23 19:53 Blood Pressure 145/91 H 11/03/23 19:53 Pulse Oximetry 99 11/03/23 19:53 Oxygen Delivery Method Room Air 11/03/23 19:53 Course Orders Ordered: ED Orders 11/03/23 23:22 Ammonia (NH3) Stat Discontinued Medications Aspirin (Aspirin 81 Mg Chew Tab) 324 mg PO NOW ONE Stop: 11/03/23 20:02 Last Admin: 11/03/23 20:07 Dose: 324 mg Documented By: Famotidine (Famotidine 20 Mg/2 Ml Vial) 20 mg IV NOW MALCOLM Last Admin: 11/03/23 22:42 Dose: 20 mg Documented By: STACEY Tramadol HCl (Tramadol 50 Mg Prepack) 1 bottle MISC DIRECTED ONE Stop: 11/04/23 01:11 Last Admin: 11/04/23 01:16 Dose: 1 bottle Documented By: GC Vital Signs Vital signs: Vital Signs - 8 hr 11/03/23 19:53 11/03/23 20:32 Temperature 98.2 F Pulse Rate 98 H 101 H Respiratory Rate 16 18 Blood Pressure 145/91 H 138/91 H Pulse Oximetry 99 100 Oxygen Delivery Method Room Air Room Air MDM - Chest Pain Lab Data Attestation: I reviewed the patient's lab results. 11/03/23 19:58 11/03/23 19:58 Labs: Lab Results 11/03/23 11/03/23 11/03/23 Range/Units 19:55 19:58 22:02 WBC 5.5 (4.5-11.0) X10^3/uL RBC 4.37 L (4.5-5.9) X10^6/uL Hgb 14.0 (13.5-17.5) g/dL Hct 42.0 (41-53) % MCV 96.3 (80-100) fL MCH 32.2 (26-34) PG MCHC 33.4 (30-36) % RDW 13.3 (11.6-14.8) % Plt Count 125 L (150-400) X10^3/uL Neut % (Auto) 47.0 L (50-75) % Lymph % (Auto) 34.9 (25-40) % [place] % (Auto) 13.4 (3-14) % Eos % (Auto) 4.3 H (2-4) % Baso % (Auto) 0.4 (0-2) % Neut # (Auto) 2600 (1837-2543) /uL Lymph # (Auto) 1900 (3202-5630) /uL [place] # (Auto) 700 (0-900) /uL Eos # (Auto) 200 (0-450) /uL Baso # (Auto) 0 (0-100) /uL PT 10.2 (9.4-12.5) SECONDS INR 0.9 (0.9-1.3) APTT 30 (25.1-36.5) SECONDS Sodium 138 (137-145) mmol/L Potassium 4.1 (3.4-5.1) mmol/L Chloride 106 (98-107) mmol/L Carbon Dioxide 22 (22-32) mmol/L BUN 11 (9-20) mg/dL Creatinine 0.76 (0.66-1.25) mg/dL Estimated GFR > 60 (>60) mL/min BUN/Creatinine Ratio 14.5 (6-22) Glucose 104 (80-110) mg/dL Calcium 9.1 (8.4-10.2) mg/dL Magnesium 2.2 (1.6-2.3) mg/dL Total Bilirubin 0.7 (0.2-1.3) mg/dL AST 134 H (17-59) IU/L ALT 85 H (<50) IU/L Alkaline Phosphatase 74 (38-126) U/L Ammonia (9-30) umol/L Total Creatine Kinase 363 H (55-170) U/L Troponin I < 0.012 < 0.012 (0.01-0.034) ng/mL Total Protein 7.6 (6.3-8.2) g/dL Albumin 4.7 (3.5-5.0) g/dL Globulin 2.9 (1.7-4.1) g/dL Albumin/Globulin Ratio 1.6 (1.0-2.8) Lipase 169 (23-300) U/L Ethyl Alcohol 83 H ( - 10) mg/dL // Range/Units 23:22 WBC (4.5-11.0) X10^3/uL RBC (4.5-5.9) X10^6/uL Hgb (13.5-17.5) g/dL Hct (41-53) % MCV (80-100) fL MCH (26-34) PG MCHC (30-36) % RDW (11.6-14.8) % Plt Count (150-400) X10^3/uL Neut % (Auto) (50-75) % Lymph % (Auto) (25-40) % [place] % (Auto) (3-14) % Eos % (Auto) (2-4) % Baso % (Auto) (0-2) % Neut # (Auto) (0919-7027) /uL Lymph # (Auto) (9623-7909) /uL [place] # (Auto) (0-900) /uL Eos # (Auto) (0-450) /uL Baso # (Auto) (0-100) /uL PT (9.4-12.5) SECONDS INR (0.9-1.3) APTT (25.1-36.5) SECONDS Sodium (137-145) mmol/L Potassium (3.4-5.1) mmol/L Chloride (98-107) mmol/L Carbon Dioxide (22-32) mmol/L BUN (9-20) mg/dL Creatinine (0.66-1.25) mg/dL Estimated GFR (>60) mL/min BUN/Creatinine Ratio (6-22) Glucose (80-110) mg/dL Calcium (8.4-10.2) mg/dL Magnesium (1.6-2.3) mg/dL Total Bilirubin (0.2-1.3) mg/dL AST (17-59) IU/L ALT (<50) IU/L Alkaline Phosphatase (38-126) U/L Ammonia < 9 L (9-30) umol/L Total Creatine Kinase (55-170) U/L Troponin I (0.01-0.034) ng/mL Total Protein (6.3-8.2) g/dL Albumin (3.5-5.0) g/dL Globulin (1.7-4.1) g/dL Albumin/Globulin Ratio (1.0-2.8) Lipase (23-300) U/L Ethyl Alcohol ( - 10) mg/dL ECG Data Attestation: I personally reviewed and interpreted this ECG as follows: Interpretation: EKG shows incomplete right bundle branch block, QRS 108, QTC 441. Computer reading accelerated junctional rhythm, however there does seem to be some P waves just after T-waves, appears sinus. Also occasional PVCs noted. No obvious ST segment elevation or depression changes. [facility] Narrative Medical decision making narrative: 68-year-old male with history of alcohol regular use, recent lifting twisting activity, pleuritic left-sided chest pain, with chest wall tenderness, suspect chest wall etiology. Screening EKG without obvious ischemic changes. Troponin negative. Chest x-ray negative. Consider acid related or alcohol-related chest discomfort, lipase normal, IV Pepcid. We will repeat interval troponin Interval troponin also negative. Could consider Motrin/naproxen but history of regular alcohol use, we will avoid NSAIDs for now given increased risk of GI bleeding. Consider Tylenol as needed for pain control. Tramadol home pack. Follow up with PCP advised, call office later today, further workup as an outpatient for now. Encouraged to stop alcohol use. He declined referral for detox services at this time. Home with family Discharge Plan Departure Patient Disposition: Home Clinical Impression: Acute chest wall pain, Alcohol dependence Activity Restrictions/Additional Instructions: Left-sided sharp chest discomfort, worse with deep inspiration, recent lifting/twisting activity, some tenderness on left anterolateral chest wall, there is no bruising or skin changes in that area. Chest x-ray unremarkable. EKG and serial blood tests did not show evidence for heart attack at this time. Symptoms and exam most consistent with chest wall etiology of discomfort. Further workup as an outpatient for now. Follow up with your regular doctor in the next 2-3 days, to coordinate with cardiology for further testing as an outpatient if indicated. Contact information for on-call health support specialist Dr. Park provided as well, though you might require referral from your primary care provider, or your provider might prefer coordination with other health support specialist specialist. You are also encouraged to stop drinking alcohol. You declined detox services for tonight when offered. Home pack of tramadol to use for pain control if needed. Discharged home with family. Follow up with your regular provider as above. Return to this/nearest emergency department for any change worsening symptoms or any concerns prior Prescriptions: New famotidine [Pepcid] 20 mg tablet 20 mg PO BID 30 Days Qty: 60 0RF No Action mupirocin 2 % ointment 1 applic topical BID Qty: 22 1RF sodium,potassium,mag sulfates [Suprep Bowel Prep Kit] 17.5-3.13-1.6 gram recon soln See Rx Instructions PO .COMPLEX Qty: 354 0RF Rx Instructions: take as directed by Physician atorvastatin 20 mg tablet 20 mg PO DAILY Qty: 90 2RF lisinopril 20 mg tablet 20 mg PO DAILY Qty: 90 0RF multivitamin tablet 1 tab PO DAILY Qty: 30 0RF Referrals: Eduard Yen MD [Primary Care Provider] - Stand Alone Forms: Patient Portal/API
[2023-11-03 22:35] LABS: Troponin I < 0.012 ng/mL (0.01-0.034)
[2023-11-03] MEDS: FAMOTIDINE 20 MG/2 ML VIAL IV (22:42)
[2023-11-04 00:14] LABS: Ammonia (NH3) < 9 umol/L (9-30)
[2023-11-04] MEDS: TRAMADOL 50 MG PREPACK 1 BOTTLE MISC (01:16)
== END 2023-11-04 01:38 | disposition home or self-care (01) ==
PROVIDERS: Emergency Provider Emergency Medicine; PCP Family Medicine
DX: R07.89 Other chest pain (principal); F10.20 Alcohol dependence, uncomplicated; Y90.4 Blood alcohol level of 80-99 mg/100 ml
CPT/HCPCS: 36415; 71045; 80053; 80320; 82140; 82550; 83690; 83735; 84484; 85025; 85610; 85730; 93005; 96374; 99284

== ENCOUNTER → 2024-12-07 08:46 | Outpatient (CLI) | payer MEDICARE, OTHER, SELFPAY ==
[2024-12-07 09:56] LABS: Hematocrit 42.6 % (41-53); Hemoglobin 14.3 g/dL (13.5-17.5); Mean Corpuscular HGB Conc 33.7 % (30-36); Mean Corpuscular Hemoglobin 32.3 PG (26-34); Mean Corpuscular Volume 95.9 fL (80-100); Platelet Count 121 X10^3/uL (150-400); Red Blood Cell Count 4.44 X10^6/uL (4.5-5.9); Red Cell Distribution Width 13.6 % (11.6-14.8); White Blood Cell Count 4.4 X10^3/uL (4.5-11.0)
[2024-12-07 10:28] LABS: Alanine Aminotransferase 72 IU/L (<50); Albumin 4.4 g/dL (3.5-5.0); Albumin Globulin Ratio 1.5 (1.0-2.8); Alkaline Phosphatase 80 U/L (38-126); Aspartate Aminotransferase 132 IU/L (17-59); BUN Creatinine Ratio 12.9 (6-22); Bilirubin Total 0.9 mg/dL (0.2-1.3); Blood Urea Nitrogen 11 mg/dL (9-20); Calcium 9.2 mg/dL (8.4-10.2); Carbon Dioxide 24 mmol/L (22-32); Chloride 104 mmol/L (98-107); Cholesterol 201 mg/dL (140-199); Estimated Glomerular Filt Rate > 60 mL/min (>60); Globulin 2.9 g/dL (1.7-4.1); Glucose 92 mg/dL (70-99); HEMOLYSIS < 15 (0-50); Lipase 171 U/L (23-300); Sodium 140 mmol/L (137-145); Total Protein 7.3 g/dL (6.3-8.2); Triglycerides 113 mg/dL (35-150)
[2024-12-07 10:36] LABS: HDL Cholesterol 127 mg/dL (40-60); LDL Cholesterol Calculated 51 mg/dL (<100)
[2024-12-07 10:53] LABS: TSH w/ Reflex to FT4 3.01 uIU/mL (0.47-4.68)
[2024-12-07 10:58] LABS: Prostate Specific Antigen Scrn 1.84 ng/mL (0.1-4.0)
[2024-12-07 11:12] LABS: Vitamin B12 343 pg/mL (239-931)
== END ==
LOC: LAB 08:53
PROVIDERS: PCP Family Medicine; Referring Provider Family Medicine; Visit Provider Family Medicine
DX: R74.8 Abnormal levels of other serum enzymes (principal); Z12.5 Encounter for screening for malignant neoplasm of prostate; E78.00 Pure hypercholesterolemia, unspecified; I10 Essential (primary) hypertension; F10.20 Alcohol dependence, uncomplicated; Z79.899 Other long term (current) drug therapy; E53.8 Deficiency of other specified B group vitamins
CPT/HCPCS: 36415; 80053; 80061; 82607; 83690; 84443; 85027; G0103